=== PATIENT | male | born 1970 | race African-American/Black ===

== ENCOUNTER 2017-01-18 14:47 | Emergency (ER) | payer MEDICAID, OTHER ==
[2017-01-18] VITALS (8 sets, daily range): BP systolic 149–207; BP diastolic 78–120; PULSE 70–113; RESP 16–20; TEMP 98.9; O2SAT 97–99
[~2017-01-18] VITALS: Ht 188 cm; Wt 138.0 kg
[~2017-01-18 14:47] MED LIST: 1-ME1LIQ PO; ASPI325T PO; CARV12.5 PO; CLON0.2T PO; COZA50TA PO; FURO1TAB93 PO; GLUC1000 PO; LEVO75TA42 PO; LORA-392 PO; POTA20PA PO; TRAZ50TA4 PO; ZOCO40TA PO
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
[2017-01-18] MEDS ORDERED: CARVEDILOL 6.25 MG TAB PO ONE (15:30)
[2017-01-18] MEDS ORDERED: LOSARTAN 50 MG TAB PO ONE (15:30)
[2017-01-18 15:57] LABS: AUTOMATED NEUTROPHIL # 9.2 TH/MM3 (1.8-7.7); BASOPHIL # 0.1 TH/MM3 (0-0.2); BASOPHIL % 0.5 % (0.0-2.0); EOSINOPHIL # 0.3 TH/MM3 (0-0.4); EOSINOPHIL % 2.1 % (0.0-4.0); HEMATOCRIT 42.6 % (39.0-51.0); HEMO FLAGS DIFF FINAL; LYMPH % 14.2 % (9.0-44.0); LYMPHOCYTE # 1.7 TH/MM3 (1.0-4.8); MEAN CELL VOLUME 84.9 FL (80.0-100.0); MEAN CORPUSCULAR HEMOGLOBIN 28.3 PG (27.0-34.0); MEAN CORPUSCULAR HGB CONC 33.4 % (32.0-36.0); MONO % 7.4 % (0.0-8.0); NEUT % 75.8 % (16.0-70.0); PLATELET COUNT 294 TH/MM3 (150-450); RED BLOOD COUNT 5.02 MIL/MM3 (4.50-5.90); RED CELL DISTRIBUTION WIDTH 14.4 % (11.6-17.2); WHITE BLOOD COUNT 12.2 TH/MM3 (4.0-11.0)
[2017-01-18] MEDS ORDERED: LEVO100T5 PO (16:02)
[2017-01-18] MEDS ORDERED: CLON-481 PO (16:02)
[2017-01-18] MEDS ORDERED: FLUO20CA4 PO (16:02)
[2017-01-18] MEDS ORDERED: SITA1TAB2 PO (16:02)
[2017-01-18] MEDS ORDERED: ATOR1TAB18 PO (16:02)
[2017-01-18] MEDS ORDERED: BUSP10TA PO (16:02)
[2017-01-18] MEDS ORDERED: METH250T PO (16:02)
[2017-01-18] MEDS ORDERED: CANA100T PO (16:02)
[2017-01-18] MEDS ORDERED: METO50TA PO (16:02)
[2017-01-18] MEDS ORDERED: VENTAER INH (16:02)
[2017-01-18] MEDS ORDERED: FURO1TAB60 PO (16:02)
[2017-01-18] MEDS ORDERED: ASPI325T PO (16:02)
[2017-01-18] MEDS ORDERED: CORE25TA PO (16:02)
[2017-01-18] MEDS ORDERED: DULO1CAP2 PO (16:02)
[2017-01-18] MEDS ORDERED: NIFE60TA58 PO (16:02)
[2017-01-18] MEDS ORDERED: SPIR25TA PO (16:02)
[2017-01-18] MEDS ORDERED: FLUT1SPR5 EACH NARE (16:02)
[2017-01-18 16:09] LABS: AMPHETAMINE, URINE NEG (NEG); BARBITURATES, URINE NEG (NEG); COCAINE, URINE NEG (NEG)
[2017-01-18 16:12] LABS: ALT (GPT) 29 U/L (12-78); ANION GAP 9 MEQ/L (5-15); AST (GOT) 24 U/L (15-37); BICARBONATE 22.7 MEQ/L (21.0-32.0); BLOOD UREA NITROGEN 21 MG/DL (7-18); CHLORIDE 104 MEQ/L (98-107); GLOMERULAR FILTRATION RATE 54 ML/MIN (>89); POTASSIUM 4.3 MEQ/L (3.5-5.1); SODIUM (NA) 136 MEQ/L (136-145)
[2017-01-18 16:13] LABS: ALKALINE PHOSPHATASE 111 U/L (45-117); TOTAL BILIRUBIN ADULT 0.4 MG/DL (0.2-1.0)
[2017-01-18] MEDS ORDERED: cloNIDine HCL 0.2 MG TAB PO ONE (17:30)
[2017-01-18] MEDS ORDERED: cloNIDine HCL 0.1 MG TAB PO ONE (18:15)
[2017-01-18] MEDS: NIFEdipine 60 MG SUSTAINED RELEASE TAB PO SCH (18:15)
[2017-01-18] MEDS ORDERED: CARVEDILOL 12.5 MG TAB PO ONE (18:15)
[2017-01-19 02:09] VITALS: BP 141/60; PULSE 90; RESP 18; O2SAT 97
[2017-01-19 06:00] VITALS: BP 174/103; PULSE 83; RESP 17; O2SAT 99
[2017-01-19] MEDS: NIFEdipine 60 MG SUSTAINED RELEASE TAB PO SCH ×2 (09:00→11:02)
[2017-01-19 10:30] VITALS: BP 156/99; PULSE 92; RESP 16; TEMP 97.3; O2SAT 97
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
[2017-01-19 12:43] VITALS: BP 156/99; TEMP 98.3
== END 2017-01-19 12:47 | disposition home or self-care (01) ==
LOC: NEPC 14:47 → NEPJ 01-19 12:47
DX: F32.9 Major depressive disorder, single episode, unspecified (principal); F43.23 Adjustment disorder with mixed anxiety and depressed mood; I10 Essential (primary) hypertension; E11.9 Type 2 diabetes mellitus without complications; E78.00 Pure hypercholesterolemia, unspecified; I25.2 Old myocardial infarction; Z63.8 Other specified problems related to primary support group; Z79.84 Long term (current) use of oral hypoglycemic drugs; Z87.09 Personal history of other diseases of the respiratory system; Z86.79 Personal history of other diseases of the circulatory system; Z86.59 Personal history of other mental and behavioral disorders
CPT/HCPCS: 80053; 80307; 85025; 99283